=== PATIENT | female | born 1940 | race Caucasian/White ===

== ENCOUNTER → 2018-01-10 | Outpatient (CLI) | payer MEDICARE ==
[~2018-01-10] MED LIST: ESCI5TAB10 PO; LEVO5DRO15 OP; METH-541 PO; MULT-820 PO; PRE5 PO; VITA200C22 PO
--- NOTE | 2018-01-10 14:53 | RADIOLOGY IMAGING REPORT ---
FACILITY: [facility] PATIENT NAME: NELY VERONICA : [id number] MR: [id number] V: [id number] EXAM DATE: [id number] ORDERING PHYSICIAN: ZACHARY ARTEAGA TECHNOLOGIST: Michelle Stacy PROCEDURE:BILATERAL DIGITAL SCREENING MAMMOGRAM WITH CAD ASSISTED INTERPRETATION & 3D TOMOSYNTHESIS COMPARISON:Mammogram 06/26/2016 INDICATIONS:SCREENING TECHNIQUE:This examination was reviewed with the aid of CAD. Breast tissue is predominantly fatty. FINDINGS: Vascular calcifications are seen in both breasts. There is no suspicious mass, calcification or architectural distortion. DIAGNOSTIC CATEGORY 2: BENIGN FINDINGS RECOMMENDATIONS: ROUTINE YEARLY SCREENING MAMMOGRAM AND CLINICAL EVALUATION. IMPRESSION: BIRADS 2: Benign finding. No mammographic evidence for malignancy. Dictated by: Luigi Cameron M.D. on 01/10/2018 at 12:48 Transcribed by: GEN on 01/10/2018 at 14:50 Approved by: Luigi Cameron M.D. on 01/10/2018 at 14:52 [facility]
== END ==
LOC: MAMO 01:23
PROVIDERS: ATTEND Family Medicine
DX: Z12.31 Encounter for screening mammogram for malignant neoplasm of breast (principal); R92.1 Mammographic calcification found on diagnostic imaging of breast
CPT/HCPCS: 77063; 77067

== ENCOUNTER → 2018-05-08 | Outpatient (CLI) | payer MEDICARE | LOC: RESP 01:46 | PROVIDERS: ATTEND Internal Medicine Clinical Cardiac Electrophysiology | DX: J98.4 Other disorders of lung (principal) | CPT/HCPCS: 94060; 94726; 94729 ==

== ENCOUNTER → 2018-06-04 | Outpatient (CLI) | payer MEDICARE ==
--- NOTE | 2018-06-04 15:27 | RADIOLOGY IMAGING REPORT ---
FACILITY: [facility] PATIENT NAME: Brinda Julio : 1940 MR: [id number] V: [id number] EXAM DATE: ORDERING PHYSICIAN: ZACHARY ARTEAGA TECHNOLOGIST: [place] [facility] [place] Jul[place] : 1940 Visit/Account:[id number] Date of Sevice: 06/04/2018 RIBS RIGHT INDICATION: Chest wall pain after lifting COMPARISON: 10/22/2017 FINDINGS: The cardiac silhouette is enlarged. Left-sided pacemaker leads are unchanged in position. There is no focal infiltrate or lobar consolidation. There is no pneumothorax or pleural effusion. No right-sided rib abnormalities are noted. IMPRESSION: 1. Negative chest and right rib series Report Dictated By: Wyatt Morton at 06/04/2018 3:22 PM Report E-Signed By: Wyatt Morton at 06/04/2018 3:24 PM WSN:[email or web address]
== END ==
LOC: RAD 12:54
PROVIDERS: ATTEND Family Medicine
DX: R07.89 Other chest pain (principal)
CPT/HCPCS: 71100

== ENCOUNTER → 2018-09-10 | Outpatient (CLI) | payer MEDICARE | LOC: LAB 10:25 | PROVIDERS: ATTEND Internal Medicine Clinical Cardiac Electrophysiology | DX: I48.0 Paroxysmal atrial fibrillation (principal) | CPT/HCPCS: 36415; 82310; 82374; 82435; 82565; 82947; 84132; 84295; 84520 ==